=== PATIENT | female | born 1980 | race Caucasian/White ===

== ENCOUNTER 2018-01-07 08:47 | Day surgery (SDC) | payer OTHER, SELFPAY ==
--- NOTE | 2018-01-01 15:55 | EKG12_ITS ---
Test Reason : PREOP Blood Pressure : / mmHG Vent. Rate : 069 BPM Atrial Rate : 069 BPM P-R Int : 118 ms QRS Dur : 084 ms QT Int : 386 ms P-R-T Axes : 056 053 047 degrees QTc Int : 413 ms Normal sinus rhythm with sinus arrhythmia Normal ECG Confirmed by ELIEZER MEDRANO, NEFTALY ([id number]), film and video editor ELVIRA PRASAD ([id number]) on 01/05/2018 1:49:35 PM Referred By: Jeannette Perry Confirmed By:NEFTALY MARTINS MD
[2018-01-01 16:21] LABS: Hematocrit 40.8 % (37-47); Hemoglobin 13.9 g/dl (12.0-15.0); Mean Corp Hgb Conc 34.1 g/gl (32-36); Mean Corpuscular Volume 90.9 fL (81-99); Mean Platelet Vol. 10.3 fl (6.2-12.0); Platelet Count 214 K/mm3 (150-450); RBC Distribution Width CV 12.1 % (11.6-14.6); RBC Distribution Width SD 39.8 fl (35.1-43.9); Red Blood Count 4.49 M/mm3 (4.2-5.4); White Blood Count 6.1 K/mm3 (4.4-11.0)
[2018-01-01 16:23] LABS: Scan Indicated on CBC? Y/N NO
[2018-01-07 09:15] LABS: Internal QC Validated? YES +Cl - CLEAR BKGD; Pregnancy, Urine Negative Negative
[2018-01-07 09:18] VITALS: BP 125/86; PULSE 76; RESP 16; TEMP 37.7; O2SAT 98; BMI 27.5
--- NOTE | 2018-01-07 10:22 | PCM.DC.TUB ---
Discharge Diet: No Restrictions - Increase fluid intake for the next 48 hours. Discharge Activity: Return to Normal Activity, May Drive - when you are no longer taking pain/narcotic meds., May Shower, May Take a Tub Bath - in 7 days May resume sexual activity in: 1 week Additional Activity Instructions:: Ambulate often the next week after surgery. Nothing in the vagina for 5 days. Call your doctor if your incision/area has: Continuous Slow Oozing, Sudden Increased Bleeding, Increased Pain/ Swelling, Increased Redness, Foul Smelling Discharge Call your doctor if you observe: Fever of 101 or Higher Cleanse incision/area with: Soap & Water Allergies/Adverse Reactions: Allergies pseudoephedrine Allergy (Verified 12/31/17 11:19) Other HR & BP ELEVATED Medications to take at Discharge Hydrocodone/Acetaminophen [[place] 5-325 Tablet] 1 - 2 ea PO Q8 3 Days #10 tab 01/07/18 Ibuprofen [Motrin] 600 mg PO Q6H PRN #30 tab 01/07/18 The following prescriptions were given: Hydrocodone/Acetaminophen [[place] 5-325 Tablet] 1 - 2 ea PO Q8 3 Days #10 tab Ibuprofen [Motrin] 600 mg PO Q6H PRN #30 tab PRN Reason: Pain Primary Care Physician: Steven Ferrell MD [Primary Care Provider] - Please Follow Up With: Jeannette Perry MD - [phone] When: as scheduled or as needed
--- NOTE | 2018-01-07 10:30 | FALS_PTH ---
PATIENT: MIKAYLA RAYA LOC: [facility] [place] U#:[id number] AGE/SX: 37/F ROOM: RE01/07/[address]: Dr. Jeannette Perry MD : 1980 BED: DIS: 01/07/2018 SPEC #: [id number] RECD: 01/07/18 11:10 STATUS: FARAZ VASHTI #: [id number] ELKIN: 01/07/18 10:[address]: Jeannette Perry DEPT: SURGICAL PATHOLOGY RECD BY: Dhiraj Caban ENTERED: 01/07/18 12:08 SP TYPE: FALL TUBES OTHR DR: Dr. Steven Ferrell MD Tissues: Fallopian tube Procedures: Surgery Specimen Level II HEADER OPERATION: Laparoscopic salpingectomy PRE-OP DIAGNOSIS: Requests sterilization TISSUE SUBMITTED: Bilateral fallopian tubes MICROSCOPIC DIAGNOSIS Bilateral fallopian tubes, salpingectomy: Bilateral fallopian tubes including fimbrial ends, no pathologic diagnosis. SJ:sanchez 2/16/18 MICROSCOPIC DESCRIPTION Slides are reviewed. GROSS DESCRIPTION Received in fixative is one container labeled with the patient's name and designated bilateral fallopian tubes. The specimen consists of bilateral fallopian tubes including fimbrial ends. The fallopian tubes are not identified as right or left. One of the fallopian tubes measures 7.5 cm in length and 0.7 cm in diameter. Sections reveal unremarkable cut surfaces. The second fallopian tube is received in multiple pieces. The distal end with fimbrial end measures 3 cm in length and 0.5 cm in diameter. Four smaller pieces are also noted measuring 0.5 to 2 cm in length. Sections reveal unremarkable cut surfaces. [employer]st [employer] sections are submitted in two cassettes as follows: 1 ? fallopian tube received intact, 2 ? fallopian tube received in multiple pieces. / EDER:sanchez 01/07/18 TC:4 CPT: 04141 x2
[2018-01-07] MEDS: Bupivacaine 0.25% 30 ML Vial (10:40)
--- NOTE | 2018-01-07 10:51 | PCM.OPRPT ---
Report of Operation Date of Procedure: 01/07/18 Pre-Operative Diagnosis: Sterilization request Post-Operative Diagnosis: Same Surgery/Procedure Performed:: Laparoscopic bilateral salpingectomy human resources representative: crow hutchinson Type of Anesthesia:: MAC/Supplemental/Local Anesthesiologist: Jenelle Garcia Special Medications: None Specimen's removed: Bilateral tubes Drains: None Estimated Blood Loss (mL): 5cc Fluids Replaced: 800 cc lr Description of Procedure: The patient was taken to the operating room where she was prepped and draped in the dorsolithotomy position. A weighted speculum was placed in the vagina and the anterior lip of the cervix was grasped with a tenaculum. The Dinora uterine manipulator was placed and the remainder of the instruments were removed from the vagina. Attention was turned to the abdomen. All port sites were infiltrated with 0.25% Marcaine before skin incisions were made. A 5 mm intraumbilical incision was made. The anterior abdominal wall was tented up with 2 towel clamps while a 5 mm blade less trocar and sleeve were directly inserted. Intraperitoneal placement was confirmed with the laparoscope. The pneumoperitoneum was created and the underlying abdominal contents were intact. The patient was placed in Trendelenburg. Right lower quadrant port was placed under direct visualization lateral to the inferior epigastric vessels. Alligator grasper was placed through the midline of the abdomen approximately 3 cm above the symphysis pubis. The bowel was swept away and the above findings were noted. The LigaSure device was used to clamp seal and transect the antimesenteric portions of the right tube to the cornual insertion of the uterus. The tube was amputated from the uterus and the pedicles were all confirmed to be hemostatic. The same procedure was performed on the contralateral side. The specimens were brought out through a 5 mm port. The pedicles were again examined and found to be hemostatic. The lateral port was removed under direct visualization and no active bleeding was noted. The pneumoperitoneum was released. The skin incisions were closed with Monocryl suture in a subcuticular fashion and skin glue the student with me present in the room. The vaginal instruments were removed and the vaginal sweep was completed by me. The procedure was performed by me with assistance other than as dictated above. All sponge and needle counts were correct and the patient was taken to the recovery room in stable condition. Grafts/Implants Used: None - Complications None - Admit VTE Documentation VTE Present on Admission: No VTE Mechan Device Prophylaxis: SCD's VTE Pharm Prophylaxis ordered?: No Reason prophylaxis not ordered:: Procedure Not Indicated
--- NOTE | 2018-01-07 10:56 | OP.PCM_ITS ---
Report of Operation Date of Procedure: 01/07/18 Pre-Operative Diagnosis: Sterilization request Post-Operative Diagnosis: Same Surgery/Procedure Performed:: Laparoscopic bilateral salpingectomy structural steel equipment erector: crow hutchinson Type of Anesthesia:: MAC/Supplemental/Local Anesthesiologist: Jenelle Garcia Special Medications: None Specimen's removed: Bilateral tubes Drains: None Estimated Blood Loss (mL): 5cc Fluids Replaced: 800 cc lr Description of Procedure: The patient was taken to the operating room where she was prepped and draped in the dorsolithotomy position. A weighted speculum was placed in the vagina and the anterior lip of the cervix was grasped with a tenaculum. The Dinora uterine manipulator was placed and the remainder of the instruments were removed from the vagina. Attention was turned to the abdomen. All port sites were infiltrated with 0.25 % Marcaine before skin incisions were made. A 5 mm intraumbilical incision was made. The anterior abdominal wall was tented up with 2 towel clamps while a 5 mm blade less trocar and sleeve were directly inserted. Intraperitoneal placement was confirmed with the laparoscope. The pneumoperitoneum was created and the underlying abdominal contents were intact. The patient was placed in Trendelenburg. Right lower quadrant port was placed under direct visualization lateral to the inferior epigastric vessels. Alligator grasper was placed through the midline of the abdomen approximately 3 cm above the symphysis pubis. The bowel was swept away and the above findings were noted. The LigaSure device was used to clamp seal and transect the antimesenteric portions of the right tube to the cornual insertion of the uterus. The tube was amputated from the uterus and the pedicles were all confirmed to be hemostatic. The same procedure was performed on the contralateral side. The specimens were brought out through a 5 mm port. The pedicles were again examined and found to be hemostatic. The lateral port was removed under direct visualization and no active bleeding was noted. The pneumoperitoneum was released. The skin incisions were closed with Monocryl suture in a subcuticular fashion and skin glue the student with me present in the room. The vaginal instruments were removed and the vaginal sweep was completed by me. The procedure was performed by me with assistance other than as dictated above. All sponge and needle counts were correct and the patient was taken to the recovery room in stable condition. Grafts/Implants Used: None - Complications None - Admit VTE Documentation VTE Present on Admission: No VTE Mechan Device Prophylaxis: SCD's VTE Pharm Prophylaxis ordered?: No Reason prophylaxis not ordered:: Procedure Not Indicated
[2018-01-07 11:07] VITALS: BP 123/78; BP 125/86; PULSE 91; RESP 16; TEMP 36.7; O2SAT 100
[2018-01-07 11:15] VITALS: BP 125/86; BP 126/90; PULSE 81; RESP 100; O2SAT 100
[2018-01-07 11:30] VITALS: BP 114/78; BP 125/86; PULSE 70; RESP 16; O2SAT 100
[2018-01-07 11:42] VITALS: BP 114/86; BP 125/86; PULSE 68; RESP 16; TEMP 36.7; O2SAT 98
[2018-01-07 12:02] VITALS: BP 125/86
== END 2018-01-07 12:05 | disposition home or self-care (01) ==
LOC: SDC 08:48 → AC 08:48
PROVIDERS: Anesthesiology; Family Provider Family Medicine; PCP Family Medicine; Visit Provider Obstetrics & Gynecology
PROC: (CPT 58661; principal; 2018-01-07 10:15)
DX: Z30.2 Encounter for sterilization (principal); E04.1 Nontoxic single thyroid nodule; F17.210 Nicotine dependence, cigarettes, uncomplicated
CPT/HCPCS: 58661; 36415; 81025; 85027; 88302; 93005; J7120; J2405

== ENCOUNTER → 2018-03-10 11:02 | Outpatient (CLI) | payer OTHER, SELFPAY ==
--- NOTE | 2018-03-10 11:10 | VDLE_ITS ---
Reason For Study: LEG PAIN RIGHT LEFT GSV is normal. CFV is compressible, spontaneous, phasic, CFV is compressible, spontaneous, phasic, competent, and demonstrates normal competent and demonstrates normal augmentation. augmentation. FV is compressible, spontaneous, phasic, competent and demonstrates normal augmentation. POP V is compressible, spontaneous, phasic, competent and demonstrates normal augmentation. T/P Trunk is compressible. PTV is compressible. RT PerV is compressible. Procedure Exam performed in department. A preliminary report was called and/or faxed to Che Qiu. Interpretation Summary There is no evidence of right lower extremity deep vein thrombosis. Right greater saphenous vein appears patent and compressible segmentally. Normal flow patterns left common femoral vein. Ordering Physician: Lissy Qiu Referring Physician: Rommel Ferrell Performed By: Melissa Temple RVT
== END ==
PROVIDERS: Family Provider Family Medicine; PCP Family Medicine
DX: M79.661 Pain in right lower leg (principal)
CPT/HCPCS: 93971

== ENCOUNTER → 2018-07-23 16:02 | Outpatient (CLI) | payer OTHER, SELFPAY ==
--- NOTE | 2018-07-23 10:15 | FLU_PTH ---
PATIENT: MIKAYLA RAYA LOC: [facility] U#:[id number] AGE/SX: 45/F ROOM: RE07/23/[address]: Dr. Sarah Moncada MD : 1980 BED: DIS: SPEC #: [id number] RECD: 07/23/18 16:00 STATUS: FARAZ VASHTI #: [id number] ELKIN: 07/23/18 10:[address]: Sarah Moncada DEPT: CYTOLOGY RECD BY: Vicki Garza ENTERED: 07/27/18 08:39 SP TYPE: Fluid OTHR DR: Dr. Steven Ferrell MD Tissues: A - Thyroid isthmus B - Thyroid isthmus Procedures: Pap Stain (control) Special Stain Group II Surgery Specimen Level IV Cell Block Cytospin Fluid HEADER OPERATION: Ultrasound-guided fine needle aspiration of thyroid isthmus PRE-OP DIAGNOSIS: Thyroid nodules TISSUE SUBMITTED: A ? FNA thyroid isthmus fluid for cytology, B - FNA thyroid isthmus 6 slides DIAGNOSIS CYTOLOGY A. Fine needle aspiration, thyroid isthmus fluid for cytology (cytospins and cell block): Benign follicular cells and macrophages. B. Fine needle aspiration, isthmus nodule (smears): Adequate for evaluation. Negative, consistent with colloid nodule. AM:sanchez 07/28/18 COMMENT A. The specimen is adequate for evaluation. The cell block shows benign fragment of thyroid tissue. The cytospins contain scattered benign follicular cells and macrophages. CYTOLOGY STUDY Slides are reviewed. CYTOLOGY GROSS A - Received is 15 ml of brown cloudy fluid labeled with the patient's name and and designated per the requisition as thyroid isthmus. Submitted for cytology preparation including cell block. B - Received are six smears labeled with the patient's name and designated per the requisition as thyroid isthmus. Submitted for staining. 07/27/18 TC:5 CPT: 09138, 57803 x2
== END ==
PROVIDERS: Family Provider Family Medicine; PCP Family Medicine; Visit Provider Surgery
DX: E04.2 Nontoxic multinodular goiter (principal)
CPT/HCPCS: 88108; 88305; 88313

== ENCOUNTER 2019-11-03 18:44 | Emergency (ER) | payer BC, SELFPAY ==
[2019-11-03 18:46] VITALS: BP 164/102; PULSE 132; RESP 15; TEMP 36.8; O2SAT 100; BMI 24.2
--- NOTE | 2019-11-03 18:47 | ED.RN ---
CALLED FOR EKG PER RN REQUEST, PULLED OLD EKGS FOR
[2019-11-03 18:51] VITALS: BP 164/102; PULSE 131; RESP 13; O2SAT 100
--- NOTE | 2019-11-03 18:58 | ED.DCSUM_ITS ---
History of Present Illness Chief Complaint: Chest Pain Informant: Patient Onset: Today - 45 minutes prior to arrival Current Severity: Moderate Maximum Severity: Moderate Narrative: Patient presents with chest pain and heart racing. She states she was sitting at her computer playing a game when she had sudden tight squeezing central chest pain. She felt short of breath. The squeezing sensation eased up but then wor sened again on 2 separate occasions. Patient states she is had some intermittent shortness of breath. Earlier in the day she felt completely normal. No change in caffeine intake or medications. - Past Medical History (1) PTSD (post-traumatic stress disorder) Status: Chronic Past Medical History - Allergies and Home Meds Allergies/Adverse Reactions: Allergies pseudoephedrine Allergy (Verified 11/03/19 18:45) Other HR & BP ELEVATED Primary Care Physician: Steven Ferrell MD [Primary Care Provider] - 3-5 Days if not improving Prior records reviewed: Yes Lives: With Family Smoking Status: Former smoker Review of Systems General: Denies: Chills, Fever Eyes: Denies: Visual changes - bilaterally ENT: Denies: Bilateral ear pain Cardiovascular: Reports: Chest pain, Heart racing Respiratory: Reports: Dyspnea. Denies: Cough, Sputum Gastrointestinal: Denies: Abdominal pain, Nausea, Vomiting, Diarrhea Genitourinary: Denies: Dysuria Musculoskeletal: Denies: Swelling, Extremity Pain Skin: Denies: Rash Neurological: Denies: Headache Allergy: Denies: Uticaria Physical Exam Vital Signs/Narrative: Vital Signs Temp Pulse Resp BP Pulse Ox 11/03/19 18:51 131 H 13 164/102 H 100 11/03/19 18:46 98.2 F 132 H 15 164/102 H 100 Inital Vital Signs reviewed: Yes General: Well nourished, Well developed Head: Normocephalic ENT: Moist mucous membranes Neck: Supple Cardiovascular: Tachycardia Respiratory: No distress, CTA bilaterally Abdomen: Soft, Nontender Extremities: Nontender, No edema Skin: Normal color, No rash Neurological: Alert, Oriented x3 Psychological: - - Anxious Diagnostic/Tx/Re-eval Impressions Chest X-Ray 11/03/19 19:00 IMPRESSION: Normal x-ray examination of the chest. Electronically Signed: Mo Saldivar DO at 19:14 EST Tel [phone], Service support , 11/03/19 19:00 Chest 1 View (Portable) [RAD] Stat Laboratory Results 11/03/19 11/03/19 11/03/19 18:57 18:57 18:57 WBC 8.4 RBC 4.76 Hgb 14.4 Hct 42.1 MCV 88.4 MCH 30.3 MCHC 34.2 RDW Std Deviation 37.6 RDW Coeff of Ann 11.6 Plt Count 282 MPV 10.1 Immature Gran % (Auto) 0.200 Neut % (Auto) 52.2 Lymph % (Auto) 41.0 [place] % (Auto) 5.5 Eos % (Auto) 0.6 Baso % (Auto) 0.5 Absolute Neuts (auto) 4.4 Absolute Lymphs (auto) 3.46 Nucleated RBC % 0 D-Dimer Quant (PE/DVT) 0.31 Sodium 138 Potassium 2.8 L Chloride 106 Carbon Dioxide 21.0 Anion Gap 11 BUN 11 Creatinine 1.03 H Estim Creat Clear Calc 70.01 Est GFR (MDRD) Af Amer 78 Est GFR (MDRD) Non-Af 64 BUN/Creatinine Ratio 10.7 Glucose 124 H Calcium 8.8 Troponin I < 0.015 - EKG Initial EKG Interpretation: Sinus Tachycardia - Sinus tach at 130. Minimal ST depression in V3 and V4. Follow-up EKG Interpretation: Sinus Rhythm - Sinus at 81 with no acute ischemia. - Medical Decision Making Patient was given IV fluids. On repeat evaluation heart rate was still running around 110. She seemed to have significant reassurance when she knew that her blood work and EKG were not abnormal. Heart rate improved into the 90s just with this information. She was still having intermittent tightness almost like a muscle spasm. She was given a small dose of Valium. At time of discharge heart rate is in the 80s and she is resting comfortably. Repeat EKG reveals no ST changes. Potassium was slightly low at 2.8. She was given oral replacement here and given a prescription for 3 days of medication at home. ED Disposition - Plan for ED Patient: Disposition: Home or Assisted Living Diagnosis: Chest pain, Hypokalemia Instructions: CHEST PAIN, NonCardiac, Hypokalemia Prescriptions: Potassium Chloride [K-Dur] 20 meq PO BID #6 tab Transmission Status: Received by NIR [id number] KALI TOMPKINS Referrals: Steven Ferrell MD [Primary Care Provider] - 3-5 Days if not improving
--- NOTE | 2019-11-03 18:58 | EKG12_ITS ---
Test Reason : CP Blood Pressure : / mmHG Vent. Rate : 130 BPM Atrial Rate : 130 BPM P-R Int : 134 ms QRS Dur : 074 ms QT Int : 316 ms P-R-T Axes : 080 067 016 degrees QTc Int : 465 ms Sinus tachycardia Nonspecific ST&T wave abnormality Abnormal ECG Confirmed by MOHINDER MEDRANO, TOÑITO ([id number]), editor book ELVIRA PRASAD ([id number]) on 11/07/2019 2:21:31 PM Referred By: Confirmed By:TOÑITO VINES MD
[2019-11-03 19:00] VITALS: O2SAT 100
[2019-11-03] MEDS: 0.9% Normal Saline 1,000 ML 150 ML IV (19:00)
--- NOTE | 2019-11-03 19:00 | RAD_ITS ---
STUDY: X-RAY CHEST REASON FOR EXAM: Female, 39 years old. Chest pain. TECHNIQUE: Single AP portable view of the chest. COMPARISON: None. FINDINGS: The lungs are clear and expanded. There is no demonstrated pleural abnormality. Normal size heart. Normal mediastinum and honey. Normal visualized pulmonary arteries. Normal visualized aortic arch and descending thoracic aorta. Normal visualized thoracic spine. Normal visualized ribs, clavicles, and shoulders. There is no demonstrated abnormality of the visualized soft tissue structures of the upper abdomen. RAD/Chest 1 View (Portable) IMPRESSION: Normal x-ray examination of the chest. Electronically Signed: Mo Saldivar DO at 19:14 EST Tel [phone], Service support ,
[2019-11-03] MEDS: Aspirin 81 MG TAB.CHEW 324 MG PO (19:04)
[2019-11-03 19:42] LABS: Absolute Lymphocyte Count 3.46 X10^3/uL (0.83-4.51); Absolute Neutrophil Count 4.4 X10^3/uL (2.0-7.7); Basophil# 0.04 X10^3/uL; Basophil% 0.5 % (0-1); Eosinophil# 0.05 X10^3/uL; Eosinophils% 0.6 % (0-5); Hematocrit 42.1 % (37-47); Hemoglobin 14.4 g/dL (12.0-15.0); Lymphocyte # 3.46 X10^3/ul (4.0); Mean Corp Hgb Conc 34.2 g/dL (32-36); Mean Corpuscular Hgb 30.3 pg (27.0-32.0); Mean Corpuscular Volume 88.4 fL (81-99); Mean Platelet Vol. 10.1 fl (6.2-12.0); Monocyte# 0.46 X10^3/uL; Monocyte% 5.5 % (0-10); NRBC Flagged by Analyzer 0 % (0-5); Neutrophil # 4.41 X10^3/uL (2.7-7.7); Neutrophil % 52.2 % (47-70); Platelet Count 282 K/mm3 (150-450); RBC Distribution Width CV 11.6 % (11.6-14.6); RBC Distribution Width SD 37.6 fl (35.1-43.9); Red Blood Count 4.76 M/mm3 (4.2-5.4); White Blood Count 8.4 K/mm3 (4.4-11.0)
[2019-11-03 19:43] LABS: Anion Gap 11 (5-15); BUN 11 mg/dL (7-18); BUN/Creat Ratio 10.7 RATIO (10-20); Calcium,Total 8.8 mg/dL (8.5-10.1); Chloride 106 mmol/L (98-107); Creatinine, Serum 1.03 mg/dL (0.55-1.02); EST Glomerular Filtration Rate 64 mL/min (>60); Est Glom Filt Rate - Afr Amer 78 mL/min (>60); Estimated Creatinine Clearance 70.01 ml/min; Glucose 124 mg/dL (74-106); Potassium 2.8 mmol/L (3.5-5.1); Sodium Level 138 mmol/L (136-145)
[2019-11-03 19:54] LABS: D-Dimer Quantitative (DVT/PE) 0.31 FEU/ug/m (0.27-0.49)
[2019-11-03] MEDS: diazePAM 5 MG Tablet 2.5 MG PO (21:33)
[2019-11-03 21:39] VITALS: BP 112/68; PULSE 87; RESP 18
--- NOTE | 2019-11-03 21:42 | EKG12_ITS ---
Test Reason : REPEAT Blood Pressure : / mmHG Vent. Rate : 081 BPM Atrial Rate : 081 BPM P-R Int : 134 ms QRS Dur : 084 ms QT Int : 382 ms P-R-T Axes : 065 050 056 degrees QTc Int : 443 ms Normal sinus rhythm Normal ECG Confirmed by MOHINDER MEDRANO, TOÑITO ([id number]), offline editor BALJIT STALLINGS ([id number]) on 11/07/2019 11:41:26 AM Referred By: Confirmed By:TOÑITO VINES MD
[2019-11-03 22:14] VITALS: BP 110/84; BP 110/89; PULSE 89; RESP 18; O2SAT 97
== END 2019-11-03 22:15 | disposition home or self-care (01) ==
PROVIDERS: Emergency Provider Emergency Medicine; Family Provider Family Medicine; PCP Family Medicine
DX: R07.89 Other chest pain (principal); E87.6 Hypokalemia; F43.10 Post-traumatic stress disorder, unspecified; Z87.891 Personal history of nicotine dependence
CPT/HCPCS: 71045; 80048; 84484; 85025; 85379; 93005; 96360; 96361; 96374; 96375; 99285; J7030; A4216; J2405

== ENCOUNTER 2021-02-22 14:59 | Outpatient (RCR) | payer MEDICARE, OTHER, SELFPAY | END 2021-04-30 23:59 | LOC: IMMUN 14:59 | PROVIDERS: PCP Family Medicine; Visit Provider Family Medicine | DX: Z23 Encounter for immunization (principal) | CPT/HCPCS: 0001A; 0002A; 91300 ==

== ENCOUNTER → 2022-07-08 | Outpatient (CLI) | payer OTHER, MEDICARE, SELFPAY ==
[2022-07-08 17:58] LABS: Basophil# 0.03 X10^3/uL; Basophil% 0.5 % (0-1); Eosinophil# 0.07 X10^3/uL; Eosinophils% 1.1 % (0-5); Hemoglobin 14.1 g/dL (12.0-15.0); Lymphocyte % 28.6 % (19-41); Mean Corp Hgb Conc 33.6 g/dL (32-36); Mean Corpuscular Hgb 30.3 pg (27.0-32.0); Mean Corpuscular Volume 90.1 fL (81-99); Mean Platelet Vol. 10.6 fl (6.2-12.0); Monocyte# 0.43 X10^3/uL; Monocyte% 6.8 % (0-10); NRBC Flagged by Analyzer 0 % (0-5); Neutrophil # 3.95 X10^3/uL (2.7-7.7); Neutrophil % 62.7 % (47-70); Platelet Count 242 K/mm3 (150-450); RBC Distribution Width CV 12.1 % (11.6-14.6); RBC Distribution Width SD 39.8 fl (35.1-43.9); Red Blood Count 4.66 M/mm3 (4.2-5.4); White Blood Count 6.3 K/mm3 (4.4-11.0)
[2022-07-08 18:28] LABS: ALB/GLOB Ratio 1.1 RATIO (0.9-2.4); AST(SGOT) 16 U/L (15-37); Alanine Aminotransfer ALT/SGPT 24 U/L (13-56); Albumin, Serum 3.6 g/dL (3.2-5.0); Alkaline Phosphatase 53 U/L (45-117); Anion Gap 6 (5-15); BUN 10 mg/dL (7-18); BUN/Creat Ratio 12.3 RATIO (10-20); Calcium,Total 8.2 mg/dL (8.5-10.1); Chloride 107 mmol/L (98-107); Cholesterol 174 mg/dL (200); Creatinine, Serum 0.81 mg/dL (0.55-1.02); EST Glomerular Filtration Rate 83 mL/min (>60); Est Glom Filt Rate - Afr Amer 101 mL/min (>60); Globulin 3.3 g/dL (2.2-4.2); Glucose 89 mg/dL (74-106); High Density Lipoprotein 33 mg/dL; Protein, Total 6.9 g/dL (6.4-8.2); Sodium Level 139 mmol/L (136-145); Thyroid Stim Hormone (TSH) 3.02 uIU/mL (0.358-3.74); Triglycerides 231 mg/dL; Very Low Density Lipoprotein 46 mg/dL (5-40)
[2022-07-08 18:39] LABS: Hemoglobin A1c 5.3 % (3.8-5.6)
== END | disposition home or self-care (01) ==
PROVIDERS: PCP Family Medicine; Visit Provider Family Medicine
DX: Z00.00 Encounter for general adult medical examination without abnormal findings (principal); Z13.0 Encounter for screening for diseases of the blood and blood-forming organs and certain disorders involving the immune mechanism; Z13.1 Encounter for screening for diabetes mellitus; Z13.220 Encounter for screening for lipoid disorders; Z13.29 Encounter for screening for other suspected endocrine disorder
CPT/HCPCS: 36415; 80053; 80061; 83036; 84443; 85025

== ENCOUNTER → 2023-04-03 | Outpatient (CLI) | payer OTHER, SELFPAY ==
--- NOTE | 2023-04-03 | FLU_PTH ---
PATIENT: MIKAYLA RAYA LOC: [facility] U#:[id number] AGE/SX: 42/F ROOM: RE04/03/[address]: Dr. Sarah Moncada MD : 1980 BED: DIS: 04/03/2023 SPEC #: [id number] RECD: 04/03/23 17:02 STATUS: FARAZ VASHTI #: [id number] ELKIN: 04/03/23 00:[address]: Sarah Moncada DEPT: CYTOLOGY RECD BY: Randell Lea ENTERED: 04/06/23 10:04 SP TYPE: Fluid OTHR DR: Dr. Steven Ferrell MD Tissues: A - Thyroid gland, NOS B - Thyroid gland, NOS Procedures: Special Stain Group II Surgery Specimen Level IV Cytospin Fluid HEADER OPERATION: Fine needle aspiration of right thyroid PRE-OP DIAGNOSIS: Abnormal ultrasound TISSUE SUBMITTED: A ? FNA right thyroid fluid, B - FNA right thyroid x8 slides DIAGNOSIS CYTOLOGY A. Right thyroid nodule fluid, fine needle aspiration (cytospin and cell block): Consistent with benign follicular nodule ([place] Category II). Adequate for evaluation. See comment. B. Right thyroid, fine needle aspiration (smears): Consistent with benign follicular nodule ([place] Category II). Adequate for evaluation. See comment. SJ:sanchez 04/07/2023 COMMENT A & B. Correlation with clinical, radiologic findings and appropriate follow up are necessary. The [place] System for thyroid diagnostic categorization was used in the evaluation of this case. Please make reference to previous specimen ([id number]) FNA, isthmus nodule with diagnosis of ?negative, consistent with colloid nodule.? CYTOLOGY STUDY Slides are reviewed. CYTOLOGY GROSS A - Received is 3 ml of brown cloudy fluid labeled with the patient's name and and designated per the requisition as right thyroid. Submitted for cytology preparation including cell block. B - Received are eight smears labeled with the patient's name and designated per the requisition as right thyroid. Submitted for staining. / sanchez 04/06/2023 TC:5 CPT: 77379 x2, 76314
== END | disposition home or self-care (01) ==
PROVIDERS: PCP Family Medicine; Visit Provider Surgery
DX: R93.89 Abnormal findings on diagnostic imaging of other specified body structures (principal)
CPT/HCPCS: 88108; 88305; 88313